=== PATIENT | female | born 1945 | race Caucasian/White ===

== ENCOUNTER 2022-12-17 06:43 | Day surgery (SDC) | payer OTHER ==
[~2022-12-17] VITALS: Ht 157.5 cm; Wt 65.8 kg
[2022-12-17] MEDS: MIDAZOLAM HCL 5 MG/5 ML VIAL ONE ×4 (08:21→08:31)
[2022-12-17] MEDS: fentaNYL CITRATE/PF 100 MCG/2 ML AMP ONE ×3 (08:21→08:31)
[2022-12-17 12:59] VITALS: BP_SYST 144
== END 2022-12-17 09:35 | disposition home or self-care (01) ==
LOC: SDS 06:43 → SMU 06:44 → SDS 09:35
PROVIDERS: ATTEND Internal Medicine
DX: R19.4 Change in bowel habit (principal); K57.30 Diverticulosis of large intestine without perforation or abscess without bleeding; K64.8 Other hemorrhoids; K29.50 Unspecified chronic gastritis without bleeding; K58.9 Irritable bowel syndrome, unspecified; Z87.891 Personal history of nicotine dependence; Z90.49 Acquired absence of other specified parts of digestive tract; Z79.899 Other long term (current) drug therapy; Z20.822 Contact with and (suspected) exposure to COVID-19
CPT/HCPCS: 36415 ×2; 45380; 43239; 87081; 88305; 88312; 88313; 99152; 99153; U0003; G0378; J2250; J3010